=== PATIENT | male | born 1980 | race Caucasian/White ===

== ENCOUNTER 2018-02-12 10:30 | Emergency (ER) | payer SELFPAY ==
--- NOTE | 2018-02-12 11:16 | ER Document Report ---
ED Medical Screen (RME) - General Chief Complaint: Flank Pain Stated Complaint: BILATERAL FLANK PAIN Time Seen by Provider: 02/12/18 11:06 Notes: 37-year-old male recently moved to this area. 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 evening he noted discomfort in both of his testicles like they are being twisted, lasted about 1 hour, he had nausea and sweating associated with this. Since then he has had bilateral flank pain, some mid upper abdomen epigastric pain and felt like urine retention. He reports he is drinking a lot of water but not urinating much, the urine is dark. He does have a history of kidney stones, last time 2 years ago. He reports on the job site they do not have water to just have coffee to drink and of course this week the weather has turned very dry, Tuesday, and temperatures into the mid to upper 80s. I have greeted and performed a rapid initial assessment of this patient. A comprehensive ED assessment and evaluation of the patient, analysis of test results and completion of the medical decision making process will be conducted by additional ED providers. - Related Data Allergies/Adverse Reactions: No Known Allergies Allergy (Verified 02/12/18 10:34) Past Medical History - Social History Chew tobacco use (# tins/day): No Frequency of alcohol use: None Drug Abuse: None Renal/ Medical History: Denies: Hx Peritoneal Dialysis Physical Exam - Vital signs Vitals: Temp Pulse Resp BP Pulse Ox 97.9 F 69 18 138/77 H 99 02/12/18 10:34 02/12/18 10:34 02/12/18 10:34 02/12/18 10:34 02/12/18 10:34 Course - Vital Signs Vital signs: Temp Pulse Resp BP Pulse Ox 97.9 F 69 18 138/77 H 99 02/12/18 10:34 02/12/18 10:34 02/12/18 10:34 02/12/18 10:34 02/12/18 10:34
--- NOTE | 2018-02-12 11:49 | RADIOLOGY REPORT (SQ) ---
EXAM DESCRIPTION: CT LTD RENAL STONE PROTOCOL ON COMPLETED DATE/TIME: 02/12/2018 11:37 am REASON FOR STUDY: Lower abd pain,dark urine,testicular pain,hx stone COMPARISON: None. TECHNIQUE: CT scan of the abdomen and pelvis performed without intravenous or oral contrast. Images reviewed with lung, soft tissue, and bone windows. Reconstructed coronal and sagittal MPR images revi ewed. All images stored on PACS. All CT scanners at this facility use dose modulation, iterative reconstruction, and/or weight based d osing when appropriate to reduce radiation dose to as low as reasonably achievable (ALARA). [facility]: Dose Right [facility]: CareDose [facility]: Dose Right [facility]: Teradose 4D [facility]: Smart [employer] RADIATION DOSE: CT Rad equipment meets quality standard of care and radiation dose reduction techniq ues were employed. CTDIvol: 12.6 mGy. DLP: 711 mGy-cm.mGy. LIMITATIONS: None. FINDINGS: LOWER CHEST: No significant findings. No nodules or infiltrates. NON-CONTRASTED LIVER, SPLEEN, ADRENALS: Evaluation limited by lack of IV contrast. No identified sign ificant masses. PANCREAS: No masses. No peripancreatic inflammatory changes. GALLBLADDER: No identified stones by CT criteria. No inflammatory changes to suggest cholecystitis. RIGHT KIDNEY AND URETER: No suspicious masses. Assessment limited by lack of IV contrast. Punctate nonobstructing calculi. No hydronephrosis or hydroureter. LEFT KIDNEY AND URETER: No suspicious masses. Assessment limited by lack of IV contrast. No signifi cant calcifications. No hydronephrosis or hydroureter. AORTA AND RETROPERITONEUM: No aneurysm. No retroperitoneal masses or adenopathy. BOWEL AND PERITONEAL CAVITY: No obvious masses or inflammatory changes. No free fluid. APPENDIX: Normal. PELVIS, BLADDER, AND ABDOMINAL WALL:No abnormal masses. No free fluid. Bladder normal. BONES: No significant findings. OTHER: No other significant finding. IMPRESSION: PUNCTATE NONOBSTRUCTING RIGHT RENAL CALCULI WITHOUT LOWER URINARY TRACT STONES OR HYDRON EPHROSIS. OTHERWISE UNREMARKABLE NONCONTRAST CT OF THE ABDOMEN AND PELVIS. COMMENT: Quality ID # [id number]: Final reports with documentation of one or more dose reduction techniques (e.g., Automated exposure control, adjustment of the mA and/or kV according to patient size, use of iterative reconstruction technique) TECHNICAL DOCUMENTATION: JOB ID: [id number]- All Rights Reserved Reading location - IP/workstation name: [email or web address]
[2018-02-12 11:57] LABS: ABSOLUTE EOSINOPHILS # (AUTO) 0.1 10^3/uL (0.0-0.6); ABSOLUTE LYMPHOCYTES (AUTO) 1.5 10^3/uL (0.5-4.7); ABSOLUTE MONOCYTES (AUTO) 0.5 10^3/uL (0.1-1.4); ABSOLUTE NEUT (AUTO) 4.9 10^3/uL (1.7-8.2); BASOPHILS % (AUTO) 0.6 % (0-2); EOSINOPHILS % (AUTO) 1.3 % (0-6); HEMATOCRIT 44.1 % (37.9-51.0); HEMOGLOBIN 14.8 g/dL (13.5-17.0); LYMPHOCYTES % (AUTO) 21.6 % (13-45); MEAN CORPUSCULAR HEMOGLOBIN 27.3 pg (27.0-33.4); MEAN CORPUSCULAR HGB CONC 33.6 g/dL (32.0-36.0); MEAN CORPUSCULAR VOLUME 81 fl (80-97); MONOCYTES % (AUTO) 6.5 % (3-13); PLATELET COUNT 301 10^3/uL (150-450); RED BLOOD COUNT 5.44 10^6/uL (4.35-5.55); RED CELL DISTRIBUTION WIDTH 14.2 % (11.5-14.0); TOTAL CELLS COUNTED % (AUTO) 100 %; WHITE BLOOD COUNT 7.1 10^3/uL (4.0-10.5)
[2018-02-12 12:04] LABS: APPEARANCE,URINE CLEAR; BILIRUBIN,URINE NEGATIVE (NEGATIVE); COLOR,URINE YELLOW; GLUCOSE, URINE NEGATIVE (NEGATIVE); KETONES,URINE NEGATIVE (NEGATIVE); LEUKOCYTE ESTERASE,URINE NEGATIVE (NEGATIVE); NITRITE,URINE NEGATIVE (NEGATIVE); PROTEIN,URINE NEGATIVE (NEGATIVE); URINE SPECIFIC GRAVITY 1.025; UROBILINOGEN,URINE NEGATIVE mg/dL (<2.0)
[2018-02-12 12:13] LABS: ALANINE AMINOTRANSFERASE 47 U/L (21-72); ALBUMIN 4.7 g/dL (3.5-5.0); ALKALINE PHOSPHATASE 67 U/L (38-126); ANION GAP 13 (5-19); ASPARTATE AMINO TRANSFERASE 25 U/L (17-59); BILIRUBIN,DIRECT 0.3 mg/dL (0.0-0.4); BILIRUBIN,TOTAL 0.3 mg/dL (0.2-1.3); BLOOD UREA NITROGEN 18 mg/dL (7-20); CALCIUM 10.1 mg/dL (8.4-10.2); CARBON DIOXIDE 27 mmol/L (22-30); CHLORIDE 104 mmol/L (98-107); CREATINE KINASE 51 U/L (55-170); GLUCOSE 93 mg/dL (75-110); POTASSIUM 4.4 mmol/L (3.6-5.0); SODIUM 143.5 mmol/L (137-145)
--- NOTE | 2018-02-12 12:41 | ER Document Report ---
ED General - General Chief Complaint: Flank Pain Stated Complaint: BILATERAL FLANK PAIN Time Seen by Provider: 02/12/18 11:06 - HPI Patient complains to provider of: Flank pain Notes: Patient coming in with bilateral flank pain states dark urine. 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 Patient states he is not drinking enough water. Patient denies any other trauma. Patient is resting comfortably on his back upon my evaluation. Denies any fevers chills nausea vomiting diarrhea. Patient has history of kidney stones the past states similar pain in the last 24 hours. Denies any dysuria. - Related Data Allergies/Adverse Reactions: No Known Allergies Allergy (Verified 02/12/18 10:34) Past Medical History - Social History Smoking Status: Former Smoker Chew tobacco use (# tins/day): No Frequency of alcohol use: None Drug Abuse: None Family History: Reviewed & Not Pertinent Patient has suicidal ideation: No Patient has homicidal ideation: No Renal/ Medical History: Reports: Hx Kidney Stones. Denies: Hx Peritoneal Dialysis Review of Systems - Review of Systems Constitutional: No symptoms reported EENT: No symptoms reported Cardiovascular: No symptoms reported Respiratory: No symptoms reported Gastrointestinal: Other - Flank pain Genitourinary: No symptoms reported Male Genitourinary: No symptoms reported Musculoskeletal: No symptoms reported Skin: No symptoms reported Hematologic/Lymphatic: No symptoms reported Neurological/Psychological: No symptoms reported -: Yes All other systems reviewed and negative Physical Exam - Vital signs Vitals: Temp Pulse Resp BP Pulse Ox 97.9 F 69 18 138/77 H 99 02/12/18 10:34 02/12/18 10:34 02/12/18 10:34 02/12/18 10:34 02/12/18 10:34 Interpretation: Normal - General General appearance: Appears well, Alert - HEENT Head: Normocephalic, Atraumatic Eyes: Normal Pupils: PERRL - Respiratory Respiratory status: No respiratory distress Chest status: Nontender Breath sounds: Normal Chest palpation: Normal - Cardiovascular Rhythm: Regular Heart sounds: Normal auscultation Murmur: No - Abdominal Inspection: Normal Distension: No distension Bowel sounds: Normal Tenderness: Nontender Organomegaly: No organomegaly - Back Back: Normal, Nontender - Extremities General upper extremity: Normal inspection, Nontender, Normal color, Normal ROM , Normal temperature General lower extremity: Normal inspection, Nontender, Normal color, Normal ROM , Normal temperature, Normal weight bearing. No: Kyra's sign - Neurological Neuro grossly intact: Yes Cognition: Normal Orientation: AAOx4 Shelly Coma Scale Eye Opening: Spontaneous [place] Coma Scale Verbal: Oriented [place] Coma Scale Motor: Obeys Commands Shelly Coma Scale Total: 15 Speech: Normal Motor strength normal: LUE, RUE, LLE, RLE Sensory: Normal - Psychological Associated symptoms: Normal affect, Normal mood - Skin Skin Temperature: Warm Skin Moisture: Dry Skin Color: Normal Course - Re-evaluation Re-evalutation: 02/12/18 16:11 CAT scan that showed kidney stones retained within the right renal pelvis although there is 1 right at the margin of the opening of the renal pelvis to the ureter. Possibility this may be causing the patient's pain. At this time do not think patient would benefit from Flomax however he is asking for prescription. Patient also asking for pain medication Ultram was given to the patient. Patient otherwise was discharged home. - Vital Signs Vital signs: Temp Pulse Resp BP Pulse Ox 97.6 F 66 18 120/80 99 02/12/18 12:59 02/12/18 12:59 02/12/18 12:59 02/12/18 12:59 02/12/18 12:59 - Laboratory Result Diagrams: 02/12/18 11:28 02/12/18 11:28 Laboratory results interpreted by me: 02/12/18 02/12/18 02/12/18 11:28 11:28 11:28 RDW 14.2 H Creatine Kinase 51 L Urine Ascorbic Acid 40 H Discharge - Discharge Clinical Impression: Flank pain, Right-sided nephrolithiasis Condition: Good Instructions: Flank Pain ([facility]), Kidney Stone ([facility]) Additional Instructions: Your evaluation today does not show signs of a kidney stone passing however he did have 2 stones that are in your right kidney. One is at the very edge of the renal pelvis and may go down the urinary tract system causing significant flank pain the next few days. The skin still may also go back into the kidney which would not cause you an issue. If her pain worsens or starts to travel more likely or passing a kidney stone take the Flomax as directed. Continue with Tylenol Motrin laboratory studies do show signs of dehydration please make sure you are drinking plenty of fluids to stay hydrated. Take medications as prescribed. Prescriptions: Ondansetron [Zofran Odt 4 mg Tablet] 4 mg PO Q4HP PRN #30 tab.rapdis PRN Reason: Ibuprofen [Motrin 800 mg Tablet] 800 mg PO Q8H PRN #30 tab PRN Reason: Tamsulosin HCl [Flomax 0.4 mg Cap.sr] 0.4 mg PO DAILY #7 cap.sr.24h Tramadol HCl [Ultram 50 mg Tablet] 50 mg PO ASDIR PRN #20 tablet PRN Reason: Forms: Return to Work
[2018-02-12 13:01] VITALS: BP 120/80
== END 2018-02-12 13:01 | disposition home or self-care (01) ==
LOC: ER 10:30
DX: N20.0 Calculus of kidney (principal); R10.9 Unspecified abdominal pain; Z87.442 Personal history of urinary calculi
CPT/HCPCS: 36415; 76380; 80053; 81001; 82550; 85025; 99284

== ENCOUNTER 2018-03-31 06:44 | Emergency (ER) | payer SELFPAY ==
[2018-03-31] MEDS ORDERED: ONDANSETRON HCL INJ/PF 4 MG/2 ML SDV IV ONE (07:12)
[2018-03-31] MEDS ORDERED: NORMAL SALINE 1000 ML 1,000 ML IV ONE (07:12)
[2018-03-31] MEDS ORDERED: DICYCLOMINE HCL 20 MG TABLET PO ONE (07:27)
[2018-03-31] MEDS ORDERED: PANTOPRAZOLE SODIUM 40 MG VIAL IV ONE (07:30)
[2018-03-31] MEDS ORDERED: ONDANSETRON 4 MG TAB.RAPDIS PO ONE (08:32)
--- NOTE | 2018-03-31 08:33 | ER Document Report ---
ED GI/ - General Chief Complaint: Nausea/Vomiting Stated Complaint: VOMITING Time Seen by Provider: 03/31/18 07:10 Mode of Arrival: Ambulatory Information source: Patient Notes: Patient is a 37-year-old male with a history of bad acid reflux he takes Nexium every day without relief who presents to the ER today for epigastric abdominal pain 1 month with a feeling like he wanted to throw up this morning. Patient states he did make himself throw up and saw some black, blood" in his vomit. Patient states that this just happened prior to arrival this morning and that he has not been nauseated or vomited since. Patient denies that he is ever taken anything other than Nexium for his acid reflux. He does not see any one for this. Patient has never had an ulcer or a bleed that he knows of. He admits that his last bowel movement was yesterday and normal, light brown, without signs of blood. Patient denies any back pain, fever, chills. TRAVEL OUTSIDE OF THE [place] IN LAST 30 DAYS: No - Related Data Allergies/Adverse Reactions: No Known Allergies Allergy (Verified 03/31/18 10:20) Past Medical History - General Information source: Patient - Social History Smoking Status: Never Smoker Chew tobacco use (# tins/day): No Frequency of alcohol use: None Drug Abuse: None Family History: Reviewed & Not Pertinent Patient has suicidal ideation: No Patient has homicidal ideation: No Renal/ Medical History: Reports: Hx Kidney Stones. Denies: Hx Peritoneal Dialysis GI Medical History: Reports: Hx Gastroesophageal Reflux Disease Review of Systems - Review of Systems Constitutional: No symptoms reported EENT: No symptoms reported Cardiovascular: No symptoms reported Respiratory: No symptoms reported Gastrointestinal: See HPI Genitourinary: No symptoms reported Male Genitourinary: No symptoms reported Musculoskeletal: No symptoms reported Skin: No symptoms reported Hematologic/Lymphatic: No symptoms reported Neurological/Psychological: No symptoms reported Physical Exam - Vital signs Vitals: Temp Pulse Resp BP Pulse Ox 97.7 F 85 18 133/78 H 98 03/31/18 06:53 03/31/18 06:53 03/31/18 06:53 03/31/18 06:53 03/31/18 06:53 - Notes Notes: PHYSICAL EXAMINATION: GENERAL: Well-appearing and in no acute distress. HEAD: Atraumatic, normocephalic. EYES: Pupils equal round and reactive to light, extraocular movements intact, sclera anicteric, conjunctiva are normal. ENT: ear canals without erythema or foreign body, TMs pearly josé with good bony landmarks, nares patent, oropharynx clear without exudates. Moist mucous membranes. Airway patent, no signs of blood to the oropharynx NECK: Normal range of motion, supple without lymphadenopathy LUNGS: CTAB and equal. No wheezes rales or rhonchi. HEART: Regular rate and rhythm without murmurs ABDOMEN: Soft, epigastric tenderness. No guarding, no rebound BACK: no vertebral tenderness, normal ROM GI/: no CVA tenderness EXTREMITIES: Normal range of motion, no pitting edema. No cyanosis. NEUROLOGICAL: Cranial nerves grossly intact. Normal sensory/motor exams. PSYCH: Anxious SKIN: Warm, Dry, normal turgor, no rashes or lesions noted Course - Re-evaluation Re-evalutation: 04/01/18 16:14 Lab work is really unremarkable today, patient feels better after Carafate, was given IV bolus of Protonix as well as IV continuous Protonix, IV fluids while here. Patient has had no nausea or vomiting since being here in the emergency department. CT of the abdomen and pelvis reveals hiatal hernia that patient did not know about. Patient was offered transfer at this time to a different hospital who has GI telephone interviewer as we do not for urgent evaluation since he has one episode this morning of what he admitted look like coffee ground emesis. Patient declines this, stating "I am not even nauseous, I had like to go home on medicine and follow-up outpatient." Patient promises to do so. I did give him gastroenterology information outpatient, his is also in the room and very concerned. I did advise her at this time that I will definitely transfer him if they would like the patient refuses. I see no real issue with this at this time as he has had no nausea or vomiting here in the ER and his hemoglobin is stable. I will place him on Carafate and Prilosec, provide him with some nausea medication. - Vital Signs Vital signs: Temp Pulse Resp BP Pulse Ox 98.1 F 78 18 128/74 H 99 03/31/18 11:44 03/31/18 11:44 03/31/18 11:44 03/31/18 11:44 03/31/18 11:44 - Laboratory Result Diagrams: 03/31/18 08:05 03/31/18 08:05 Laboratory results interpreted by me: 03/31/18 03/31/18 08:05 08:05 WBC 12.1 H RDW 14.4 H Seg Neutrophils % 80.9 H Absolute Neutrophils 9.8 H BUN 23 H Discharge - Discharge Clinical Impression: Hiatal hernia, Epigastric pain Condition: Stable Disposition: HOME, SELF-CARE Instructions: Hernia ([facility]), Ulcer ([facility]) Additional Instructions: Return immediately for any new or worsening symptoms. Follow up with GI, call tomorrow to make followup appointment. Food and drinks that commonly trigger heartburn include: * alcohol, particularly red wine. * black pepper, garlic, raw onions, and other spicy foods. * chocolate. * citrus fruits and products, such as matt, oranges and orange juice. * coffee and caffeinated drinks, including tea and soda. * peppermint. * tomatoes. Prescriptions: Omeprazole Magnesium [Prilosec Otc] 20 mg PO BID #40 tablet. Ranitidine HCl [Zantac] 150 mg PO Q6 PRN #30 tablet PRN Reason: Sucralfate [Carafate 1 gm Tablet] 1 gm PO ACHS #40 tablet Referrals: HENRRY POLANCO MD [ACTIVE STAFF] - Follow up as needed
[2018-03-31 08:50] LABS: ABSOLUTE EOSINOPHILS # (AUTO) 0.1 10^3/uL (0.0-0.6); ABSOLUTE LYMPHOCYTES (AUTO) 1.6 10^3/uL (0.5-4.7); ABSOLUTE MONOCYTES (AUTO) 0.5 10^3/uL (0.1-1.4); ABSOLUTE NEUT (AUTO) 9.8 10^3/uL (1.7-8.2); BASOPHILS % (AUTO) 0.4 % (0-2); EOSINOPHILS % (AUTO) 0.8 % (0-6); HEMOGLOBIN 13.5 g/dL (13.5-17.0); LYMPHOCYTES % (AUTO) 13.6 % (13-45); MEAN CORPUSCULAR HEMOGLOBIN 27.1 pg (27.0-33.4); MEAN CORPUSCULAR HGB CONC 33.7 g/dL (32.0-36.0); MEAN CORPUSCULAR VOLUME 80 fl (80-97); MONOCYTES % (AUTO) 4.3 % (3-13); PLATELET COUNT 307 10^3/uL (150-450); RED BLOOD COUNT 4.97 10^6/uL (4.35-5.55); RED CELL DISTRIBUTION WIDTH 14.4 % (11.5-14.0); SEGMENTED NEUTROPHILS % (AUTO) 80.9 % (42-78); TOTAL CELLS COUNTED % (AUTO) 100 %; WHITE BLOOD COUNT 12.1 10^3/uL (4.0-10.5)
[2018-03-31 08:55] LABS: INTERNATIONAL RATION (INR) 0.94; PROTHROMBIN TIME 13.1 SEC (11.4-15.4)
[2018-03-31 08:56] LABS: PARTIAL THROMBOPLASTIN TIME 34.8 SEC (23.5-35.8)
[2018-03-31 09:08] LABS: ALANINE AMINOTRANSFERASE 44 U/L (21-72); ALBUMIN 4.4 g/dL (3.5-5.0); ALKALINE PHOSPHATASE 71 U/L (38-126); ANION GAP 12 (5-19); ASPARTATE AMINO TRANSFERASE 25 U/L (17-59); BILIRUBIN,DIRECT 0.3 mg/dL (0.0-0.4); BILIRUBIN,TOTAL 0.7 mg/dL (0.2-1.3); BLOOD UREA NITROGEN 23 mg/dL (7-20); CALCIUM 9.8 mg/dL (8.4-10.2); CARBON DIOXIDE 28 mmol/L (22-30); CHLORIDE 102 mmol/L (98-107); GLUCOSE 98 mg/dL (75-110); LIPASE 31.3 U/L (23-300); POTASSIUM 4.4 mmol/L (3.6-5.0); SODIUM 142.3 mmol/L (137-145); TOTAL PROTEIN 7.6 g/dL (6.3-8.2)
[2018-03-31 09:13] LABS: AMORPHOUS SEDIMENT,URINE TRACE /HPF; APPEARANCE,URINE SLIGHTLY-CLOUDY; BILIRUBIN,URINE NEGATIVE (NEGATIVE); COLOR,URINE YELLOW; GLUCOSE, URINE NEGATIVE (NEGATIVE); KETONES,URINE NEGATIVE (NEGATIVE); LEUKOCYTE ESTERASE,URINE NEGATIVE (NEGATIVE); NITRITE,URINE NEGATIVE (NEGATIVE); PROTEIN,URINE NEGATIVE (NEGATIVE); URINE SPECIFIC GRAVITY 1.029; UROBILINOGEN,URINE NEGATIVE mg/dL (<2.0)
[2018-03-31] MEDS ORDERED: SUCRALFATE SUSP 1 GM/10 ML UDCUP PO ONE (09:58)
[2018-03-31] MEDS ORDERED: PANTOPRAZOLE SODIUM 40 MG VIAL IV PRN (09:59)
--- NOTE | 2018-03-31 10:49 | RADIOLOGY REPORT (SQ) ---
EXAM DESCRIPTION: CT ABD/PELVIS WITH IV ORAL COMPLETED DATE/TIME: 03/31/2018 10:17 am REASON FOR STUDY: coffee ground emesis, mid abd pain, "twisting" COMPARISON: None. TECHNIQUE: CT scan of the abdomen and pelvis performed with intravenous and oral contrast using pat izabela scanning technique with dynamic intravenous contrast injection. Images reviewed with lung, soft t issue, and bone windows. Reconstructed coronal and sagittal MPR images reviewed. Delayed images for e valuation of the urinary system also acquired. All images stored on PACS. All CT scanners at this facility use dose modulation, iterative reconstruction, and/or weight based d osing when appropriate to reduce radiation dose to as low as reasonably achievable (ALARA). [facility]: Dose Right [facility]: CareDose [facility]: Dose Right [facility]: Teradose 4D [facility]: [employer] CONTRAST TYPE AND DOSE: contrast/concentration: Isovue 370.00 mg/ml; Total Contrast Delivered: 98.0 ml; Total Saline Delivered: 70.0 ml RENAL FUNCTION: BUN 23 creatinine 1.0 RADIATION DOSE: CT Rad equipment meets quality standard of care and radiation dose reduction techniq ues were employed. CTDIvol: 13.5 - 18.7 mGy. DLP: 1812 mGy-cm. . LIMITATIONS: None. FINDINGS: LOWER CHEST: Hiatal hernia. LIVER: Normal size. No masses. No dilated ducts. SPLEEN: Normal size. No focal lesions. PANCREAS: No masses. No significant calcifications. No adjacent inflammation or peripancreatic fluid collections. Pancreatic duct not dilated. GALLBLADDER: No identified stones by CT criteria. No inflammatory changes to suggest cholecystitis. ADRENAL GLANDS: No significant masses or asymmetry. RIGHT KIDNEY AND URETER: No solid masses. No significant calcifications. No hydronephrosis or hyd roureter. LEFT KIDNEY AND URETER: No solid masses. No significant calcifications. No hydronephrosis or hydr oureter. AORTA AND VESSELS: No aneurysm. No dissection. Renal arteries, SMA, celiac without stenosis. RETROPERITONEUM: No retroperitoneal adenopathy, hemorrhage or masses. BOWEL AND PERITONEAL CAVITY: No obstruction. No visualized masses. No free fluid. No inflammatory ch anges or thickening of bowel wall. APPENDIX: Normal. PELVIS: No significant masses. Normal bladder. No free fluid. ABDOMINAL WALL: No masses. No hernias. BONES: No significant or acute findings. OTHER: No other significant finding. IMPRESSION: NO SIGNIFICANT OR ACUTE FINDINGS IN THE ABDOMEN OR PELVIS. TECHNICAL DOCUMENTATION: JOB ID: [id number] Quality ID # [id number]: Final reports with documentation of one or more dose reduction techniques (e.g., Au tomated exposure control, adjustment of the mA and/or kV according to patient size, use of iterative reconstruction technique) 2010 [employer]- All Rights Reserved Reading location - IP/workstation name: [email or web address]
[2018-03-31 11:45] VITALS: BP 128/74
== END 2018-03-31 11:44 | disposition home or self-care (01) ==
LOC: ER 06:44
DX: K44.9 Diaphragmatic hernia without obstruction or gangrene (principal); K21.9 Gastro-esophageal reflux disease without esophagitis; R10.13 Epigastric pain; Z87.19 Personal history of other diseases of the digestive system; Z79.899 Other long term (current) drug therapy
CPT/HCPCS: 99284; 96361; 96365; 86900; 86901; 36415; 86850; 83690; 85025; 85610; 85730; 80053; 81001; 74177; J3490; S0119; S0164; J7030

== ENCOUNTER 2019-04-16 10:44 | Emergency (ER) | payer SELFPAY ==
[2019-04-16 11:12] VITALS: BP 114/55
[2019-04-16] MEDS ORDERED: IBUPROFEN 800 MG TABLET PO ONE (11:42)
[2019-04-16] MEDS ORDERED: CLINDAMYCIN HCL 150 MG CAPSULE PO ONE (11:42)
--- NOTE | 2019-04-16 11:44 | ER Document Report ---
HPI - HPI Patient complains to provider of: Dental infection Time Seen by Provider: 04/16/19 11:32 Onset: This morning Onset/Duration: Gradual Quality of pain: Achy Pain Level: 4 Context: Patient states he broke a tooth about a month ago. Patient states that he woke up this morning with left upper jaw swelling. Patient denies any fever. Associated Symptoms: Other - Dental pain. denies: Fever, Headache Exacerbated by: Denies Relieved by: Denies Similar symptoms previously: Yes Recently seen / treated by doctor: No - ROS ROS below otherwise negative: Yes Systems Reviewed and Negative: Yes All other systems reviewed and negative - CONSTITUTIONAL Constitutional: DENIES: Fever - EENT Notes: Dental pain - RESPIRATORY Respiratory: DENIES: Coughing - GASTROINTESTINAL Gastrointestinal: DENIES: Nausea, Patient vomiting - MUSCULOSKELETAL Musculoskeletal: DENIES: Neck Pain - DERM Skin Color: Normal Skin Problems: None Past Medical History - General Information source: Patient - Social History Smoking Status: Never Smoker Frequency of alcohol use: None Drug Abuse: None Occupation: asphalt Family History: Reviewed & Not Pertinent Patient has suicidal ideation: No Patient has homicidal ideation: No Renal/ Medical History: Reports: Hx Kidney Stones. Denies: Hx Peritoneal Dialysis GI Medical History: Reports: Hx Gastroesophageal Reflux Disease Surgical Hx: Negative Vertical Provider Document - CONSTITUTIONAL Agree With Documented VS: Yes Exam Limitations: No Limitations General Appearance: WD/WN, No Apparent Distress - INFECTION CONTROL TRAVEL OUTSIDE OF THE [place] IN LAST 30 DAYS: No - HEENT HEENT: Atraumatic, Normocephalic Mouth Diagram: 1 - dental fracture, gingival tenderness, no abscess, no trismus Notes: Left maxillary facial swelling - NECK Neck: Normal Inspection, Supple - RESPIRATORY Respiratory: No Respiratory Distress - BACK Back: Normal Inspection - MUSCULOSKELETAL/EXTREMETIES Musculoskeletal/Extremeties: MAEW - NEURO Level of Consciousness: Awake, Alert, Appropriate Motor/Sensory: No Motor Deficit - DERM Integumentary: Warm, Dry, No Rash Course - Re-evaluation Re-evalutation: 04/16/19 Patient with dental infection to left upper jaw. Patient with findings worrisome for developing abscess although no fluctuance and no drainable collection at this time. Patient encouraged to follow-up with dentist or oral surgeon for further management. No potential airway compromise, no concern for Torey's angina. - Vital Signs Vital signs: Temp Pulse Resp BP Pulse Ox 98.1 F 79 18 114/55 L 97 04/16/19 11:10 04/16/19 11:10 04/16/19 11:10 04/16/19 11:10 04/16/19 11:10 Discharge - Discharge Clinical Impression: Infected dental caries Condition: Stable Disposition: HOME, SELF-CARE Instructions: Clindamycin ([facility]), Dentist, Dental Infection or Abscess ([facility]) Additional Instructions: Return immediately for any new or worsening symptoms Followup with a dental care provider, call tomorrow to make a followup appointment Prescriptions: Clindamycin HCl [Cleocin 300 mg Capsule] 300 mg PO TID #21 capsule Naproxen [Naprosyn 250 Nmg Tablet] 1 tab PO BID #14 tablet Referrals: [facility] [Provider Group] - Follow up as needed
== END 2019-04-16 11:53 | disposition home or self-care (01) ==
LOC: ER 10:44
DX: K04.7 Periapical abscess without sinus (principal); K02.9 Dental caries, unspecified
CPT/HCPCS: 99282

== ENCOUNTER 2020-08-03 11:46 | Emergency (ER) | payer SELFPAY ==
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
--- NOTE | 2020-08-03 13:09 | RADIOLOGY REPORT (SQ) ---
EXAM DESCRIPTION: CHEST 2 VIEWS IMAGES COMPLETED DATE/TIME: 08/03/2020 12:53 pm REASON FOR STUDY: chest pain COMPARISON: None. TECHNIQUE: Frontal and lateral radiographic views of the chest acquired. NUMBER OF VIEWS: Two view. LIMITATIONS: None. FINDINGS: LUNGS AND PLEURA: No opacities, masses or pneumothorax. No pleural effusion. MEDIASTINUM AND HILAR STRUCTURES: No masses or contour abnormalities. HEART AND VASCULAR STRUCTURES: Heart normal size. No evidence for failure. BONES: No acute findings. HARDWARE: None in the chest. OTHER: No other significant finding. IMPRESSION: NO SIGNIFICANT RADIOGRAPHIC FINDING IN THE CHEST. TECHNICAL DOCUMENTATION: JOB ID: [id number] 2010 [employer]- All Rights Reserved Reading location - IP/workstation name: [email or web address]
[2020-08-03 13:12] LABS: ABSOLUTE EOSINOPHILS # (AUTO) 0.1 10^3/uL (0.0-0.6); ABSOLUTE LYMPHOCYTES (AUTO) 1.7 10^3/uL (0.5-4.7); ABSOLUTE MONOCYTES (AUTO) 0.8 10^3/uL (0.1-1.4); ABSOLUTE NEUT (AUTO) 8.1 10^3/uL (1.7-8.2); BASOPHILS % (AUTO) 0.2 % (0-2); EOSINOPHILS % (AUTO) 1.2 % (0-6); LYMPHOCYTES % (AUTO) 15.9 % (13-45); MEAN CORPUSCULAR HEMOGLOBIN 27.6 pg (27.0-33.4); MEAN CORPUSCULAR HGB CONC 34.1 g/dL (32.0-36.0); MEAN CORPUSCULAR VOLUME 81 fl (80-97); MONOCYTES % (AUTO) 7.1 % (3-13); PLATELET COUNT 269 10^3/uL (150-450); RED BLOOD COUNT 4.69 10^6/uL (4.35-5.55); RED CELL DISTRIBUTION WIDTH 14.2 % (11.5-14.0); SEGMENTED NEUTROPHILS % (AUTO) 75.6 % (42-78); TOTAL CELLS COUNTED % (AUTO) 100 %; WHITE BLOOD COUNT 10.7 10^3/uL (4.0-10.5)
--- NOTE | 2020-08-03 13:12 | RADIOLOGY REPORT (SQ) ---
EXAM DESCRIPTION: FOOT LEFT COMPLETE IMAGES COMPLETED DATE/TIME: 08/03/2020 12:53 pm REASON FOR STUDY: pain injury swelling COMPARISON: None. NUMBER OF VIEWS: Three views. TECHNIQUE: AP, lateral and oblique without weight bearing radiographic images acquired of the left f oot. LIMITATIONS: None. FINDINGS: MINERALIZATION: Normal. BONES: No acute fracture or dislocation. No worrisome bone lesions. There is mild prominence of the space at the Lisfranc joint, though no step-off at the articulations of the 2nd and 3rd metacarpals w ith the midfoot. No significant osteophytes. JOINTS: No erosions. No jennifer-articular osteopenia. No chondrocalcinosis. SOFT TISSUES: No swelling. No calcifications. OTHER: No other significant finding. IMPRESSION: Mild prominence of the space at the Lisfranc joint without other findings to suggest Lis franc injury. If there is concern for Lisfranc injury, bilateral weight-bearing films may be of bene fit. TECHNICAL DOCUMENTATION: JOB ID: [id number] 2010 [employer]- All Rights Reserved Reading location - IP/workstation name: [email or web address]
[2020-08-03 13:30] LABS: ALBUMIN 4.3 g/dL (3.5-5.0); ALKALINE PHOSPHATASE 73 U/L (38-126); ANION GAP 9 (5-19); ASPARTATE AMINO TRANSFERASE 26 U/L (17-59); BILIRUBIN,DIRECT 0.2 mg/dL (0.0-0.4); BILIRUBIN,TOTAL 0.7 mg/dL (0.2-1.3); BLOOD UREA NITROGEN 12 mg/dL (7-20); CALCIUM 9.8 mg/dL (8.4-10.2); CARBON DIOXIDE 28 mmol/L (22-30); CHLORIDE 99 mmol/L (98-107); GLUCOSE 107 mg/dL (75-110); POTASSIUM 4.7 mmol/L (3.6-5.0)
[2020-08-03 16:16] VITALS: BP 141/68
--- NOTE | 2020-08-03 20:18 | EKG REPORT ---
SEVERITY:- BORDERLINE ECG - SINUS RHYTHM BORDERLINE INFERIOR Q WAVES ST ELEV, PROBABLE NORMAL EARLY REPOL PATTERN : Confirmed by: Henry May MD 03-Aug-2020 20:18:10
== END 2020-08-03 18:42 | disposition left against medical advice (07) ==
LOC: ER 11:46
DX: S91.312A Laceration without foreign body, left foot, initial encounter (principal); R07.9 Chest pain, unspecified; M79.601 Pain in right arm; V09.00XA Pedestrian injured in nontraffic accident involving unspecified motor vehicles, initial encounter; Z53.20 Procedure and treatment not carried out because of patient's decision for unspecified reasons
CPT/HCPCS: 36415; 71046; 80053; 83690; 84484; 85025; 93005; 93010; 99281